=== PATIENT | male | born 1995 | race African-American/Black ===

== ENCOUNTER 2018-05-26 17:46 | Emergency (ER) | payer OTHER ==
[2018-05-26 18:36] VITALS: BP 145/76
[2018-05-26 19:11] LABS: Influenza A Molecular POSITIVE (Negative)
--- NOTE | 2018-05-26 21:23 | UC ---
FLU HPI - HPI Summary HPI Summary: 1. 2 DAYS OF COUGH, CONGESTION, HEADACHE, SUBJECTIVE FEVERS/CHILLS AND BODY ACHES. 2. 1 WEEK OF ITCHY RASH ON LEFT HAND BETWEEN HIS FIRST AND SECOND FINGERS THAT IS GETTING WORSE. HAS A SIMILAR AREA BUT SMALLER ON HIS RIGHT HAND. PATIENT WORKS A ASSISTANT ADMINISTRATOR. - History of Current Complaint Chief Complaint: UCGeneralIllness Stated Complaint: URI Time Seen by Provider: 05/26/18 19:31 Hx Obtained From: Patient, Family/Pain Medicine Physician - MOM Onset/Duration: Gradual Onset, Lasting Days, Still Present Severity Currently: Moderate Severity Initially: Moderate Pain Intensity: 0 Pain Scale Used: 0-10 Numeric Associated Signs & Symptoms: Positive: Fever, Myalgia, Cough, Nasal Congestion, Headache - Allergy/Home Medications Allergies/Adverse Reactions: Allergies Allergy/AdvReac Type Severity Reaction Status Date / Time No Known Allergies Allergy Verified 05/26/18 18:36 PMH/Surg Hx/FS Hx/Imm Hx Respiratory History: Asthma - Surgical History Surgical History: Yes Surgery Procedure, Year, and Place: Tubes in ears, adenoids/tonsils removed - Family History Known Family History: Positive: Cardiac Disease, Respiratory Disease - Social History Alcohol Use: None Substance Use Type: None Smoking Status (MU): Never Smoked Tobacco Have You Smoked in the Last Year: No - Immunization History Most Recent Influenza Vaccination: 04/21/2013 Most Recent Tetanus Shot: Mom does not think it is up to date Review of Systems All Other Systems Reviewed And Are Negative: Yes Constitutional: Positive: Fever, Chills, Fatigue ENT: Positive: Sore Throat, Nasal Discharge Respiratory: Positive: Cough Cardiovascular: Positive: Negative Gastrointestinal: Positive: Negative Musculoskeletal: Positive: Arthralgia, Myalgia Neurological: Positive: Headache Physical Exam Triage Information Reviewed: Yes Appearance: No Pain Distress, Well-Nourished, Ill-Appearing - MILDLY Vital Signs: Initial Vital Signs Temp 98.1 F 05/26/18 18:28 Pulse 95 05/26/18 18:28 Resp 20 05/26/18 18:28 BP 145/76 05/26/18 18:28 Pulse Ox 100 05/26/18 18:28 Laboratory Tests 05/26/18 19:06 Influenza A (Rapid) Positive A Vital Signs Reviewed: Yes Eyes: Positive: Conjunctiva Clear ENT: Positive: Hearing grossly normal, Pharynx normal, TMs normal - LEFT EAC WITH RETAINED TM TUBE. MOM STATES IT HAS BEEN THERE FOR YEARS. ENT AWARE. Neck: Positive: Supple, Nontender, No Lymphadenopathy Respiratory Exam: Normal Cardiovascular Exam: Normal Abdomen Description: Positive: Soft Musculoskeletal: Positive: No Edema Neurological: Positive: Alert Psychological: Positive: Normal Response To Family, Age Appropriate Behavior Skin: Positive: Rashes - THICKENED, HYPERPIGMENTED SKIN BILATERAL HANDS BETWEEN 1ST AND 2ND FINGERS. LEFT > RIGHT Flu Course/Dx - Course Course Of Treatment: 1. FLU A POSITIVE. TAMIFLU TWICE DAILY FOR 5 DAYS. OUT OF WORK FOR THE REST OF THE WEEK. 2. RASH LOOKS TO BE A CONTACT DERMATITIS. PATIENT UNSURE WHAT IS CAUSING IT. TOPICAL STEROIDS AND FOLLOW-UP WITH DERMATOLOGY. - Differential Dx/Diagnosis Provider Diagnosis: Influenza A, Hand dermatitis Discharge - Sign-Out/Discharge Documenting (check all that apply): Patient Departure All imaging exams completed and their final reports reviewed: No Studies - Discharge Plan Condition: Stable Disposition: HOME Prescriptions: Oseltamivir CAP* [Tamiflu CAP*] 75 mg PO BID #10 cap Triamcinolone 0.1% CREAM(NF) [Kenalog Cream 0.1%(NF)] 1 applic TOPICAL TID PRN # 1 tube PRN Reason: Itching Patient Education Materials: Influenza (ED), Dermatitis (ED) Forms: *Work Release Referrals: Olman East MD [Primary Care Provider] - If Needed Additional Instructions: SWAB POSITIVE FOR INFLUENZA A. TAMIFLU TWICE DAILY FOR 5 DAYS. OTC MEDS NEEDED FOR FEVER, BODY ACHES. STAY WELL HYDRATED AND RESTED. SEEK FOLLOW-UP IF YOU ARE NOT IMPROVING EXPECTED. YOUR RASH APPEARS TO BE CONTACT RELATED. USE THE STEROID CREAM TOPICALLY 2-3 TIMES DAILY. BE VIGILANT OF YOUR EXPOSURE AT WORK AND AT HOME TO SEE IF YOU CAN ISOLATE A POSSIBLE TRIGGER. FOLLOW-UP WITH A REPORT PROGRAMMER. DERMATOLOG[place] DR. ERIC LOWERY [facility], [facility] [address] [facility]; [address] [place] [address] Dr. Huong Pompa Address: [address] [place] [address] [id number] [place] [address] DR. REMBERTO DOMÍNGUEZ [facility] [address] [place] [address] [address] [place] [address] Eloisa Chao [place] [place] DR[place] ALONDRA NELSON [phone] - Billing Disposition and Condition Condition: STABLE Disposition: Home
== END 2018-05-26 19:53 | disposition home or self-care (01) ==
LOC: UCEAST 17:46
DX: J10.1 Influenza due to other identified influenza virus with other respiratory manifestations (principal); L30.9 Dermatitis, unspecified; J45.909 Unspecified asthma, uncomplicated
CPT/HCPCS: 99212; G0463